=== PATIENT | female | born 1980 | race Caucasian/White ===

== ENCOUNTER 2020-12-05 19:02 | Emergency (ER) | payer MEDICAID ==
[~2020-12-05] VITALS: Ht 162.6 cm; Wt 60.7 kg
--- NOTE | 2020-12-05 19:48 | NUR ---
PT HERE COMPLAINING OF ALTAMIRANO X 1 YEAR WITH NAUSEA. PAIN IS ON LEFT SIDE. PT ALSO SAID TODAY SHE COULDNT PUT WEIGHT ON LEGS AND FELT WEAK. PT AMBULATED TO ROOM WITH STEADY GAIT AND NO ASSISTANCE. VSS. ERP AT BEDSIDE. CALL LIGHT IN REACH
[2020-12-05] MEDS ORDERED: KETOROLAC 30 MG/1 ML IM ONE (20:00)
[2020-12-05] MEDS ORDERED: LORazepam 1MG TABLET PO ONE (20:00)
[2020-12-05] MEDS ORDERED: SODIUM CHLORIDE FLUSH 10ML SYR IVF ONE (20:00)
[2020-12-05 20:17] LABS: BASOPHILS % (AUTO) 2 % (0-1); EOSINOPHILS % (AUTO) 4 % (1-7); LYMPHOCYTES % (AUTO) 33 % (22-44); MEAN CORPUSCULAR HEMOGLOBIN 31.4 pg (27.0-34.8); MEAN CORPUSCULAR HGB CONC 33.6 g/dL (32.4-35.8); MEAN PLATELET VOLUME 8.8 fL (7.4-10.4); MONOCYTES % (AUTO) 7 % (2-9); NEUTROPHILS % (AUTO) 55 % (42-75); PLATELET COUNT 221 x10^3/uL (130-400); RED BLOOD COUNT 4.04 x10^6/uL (3.82-5.3); RED CELL DISTRIBUTION WIDTH 12.7 % (9.6-15.2)
[2020-12-05 20:18] LABS: MD NO
[2020-12-05] MEDS ORDERED: KETOROLAC 30 MG/1 ML ONE (20:18)
[2020-12-05] MEDS ORDERED: LORazepam 1MG TABLET ONE (20:19)
[2020-12-05 20:23] LABS: ALANINE AMINOTRANSFERASE 32 U/L (12-78); ALBUMIN 3.6 g/dL (3.4-5.0); ANION GAP 3 mmol/L (5-15); CALCIUM 9.1 mg/dL (8.5-10.1); CHLORIDE 106 mmol/L (98-107); CREATININE 0.77 mg/dL (0.55-1.02)
--- NOTE | 2020-12-05 20:29 | NUR ---
PIV PLACED. PT MEDICATED WITH TORADOL. PT REFUSED ATIVAN AT THIS TIME. PT AWARE THAT UA IS NEEDED. CALL LIGHT IN REACH
[2020-12-05 20:33] LABS: ALKALINE PHOSPHATASE 53 U/L (45-117); BILIRUBIN,TOTAL 0.3 mg/dL (0.2-1.0); FREE T4 (FREE THYROXINE) 1.22 ng/dL (0.76-1.46); TOTAL PROTEIN 6.8 g/dL (6.4-8.2); TROPONIN I < 0.015 ng/mL (0.000-0.045)
--- NOTE | 2020-12-05 20:51 | NUR ---
PT TO CT
--- NOTE | 2020-12-05 21:13 | NUR ---
PT BACK FROM CT. PT HAS NO NEEDS AT THIS TIME. CALL LIGHT IN REACH
[2020-12-05 21:55] VITALS: BP 139/71
--- NOTE | 2020-12-05 21:55 | NUR ---
Patient given discharge instructions and they have confirmed that they understand the instructions. Patient ambulatory with steady gait.
== END 2020-12-05 21:58 | disposition home or self-care (01) ==
LOC: ED 19:32
DX: R51.9 Headache, unspecified (principal); R53.1 Weakness; I88.1 Chronic lymphadenitis, except mesenteric
CPT/HCPCS: 36415; 70450; 80053; 84439; 84443; 84484; 85025; 93005; 96372; 99285; J1885